=== PATIENT | male | born 1945 | race Caucasian/White ===

== ENCOUNTER 2024-01-09 21:11 | Emergency (ER) | payer MEDICARE, OTHER ==
[~2024-01-09] VITALS: Ht 167.6 cm; Wt 93.0 kg
[2024-01-09 21:39] LABS: HEMOGLOBIN 11.5 g/dL (12.5-16.3)
[2024-01-09] MEDS ORDERED: IOHEXOL 350 100 ML INFUS..BTL ONE (21:39)
[2024-01-09] MEDS ORDERED: SWABABLE VALVE TRANSFER SET EA MC ONE (21:39)
[2024-01-09] MEDS ORDERED: IV NORMAL SALINE 250 ML IV ONE (21:39)
[2024-01-09 21:41] LABS: CALCIUM 8.4 mg/dL (8.5-10.1); CARBON DIOXIDE 23 mmol/L (21-32); CHLORIDE 89 mmol/L (98-107); CREATININE 2.5 mg/dL (0.6-1.3); GLUCOSE 99 mg/dL (74-106); POTASSIUM 4.5 mmol/L (3.5-5.1); SODIUM SERUM 125 mmol/L (136-145)
[2024-01-09 21:42] LABS: BASOPHILS % (AUTO) 0.5 % (0.0-2.0); EOSINOPHILS % (AUTO) 0.5 % (0.0-7.0); HEMATOCRIT 36.4 % (36.7-47.1); LYMPHOCYTES % (AUTO) 12.1 % (20.5-51.5); MEAN CORPUSCULAR HEMOGLOBIN 19.7 uug (23.8-33.4); MEAN CORPUSCULAR HGB CONC 32 g/dL (32.5-36.3); MEAN CORPUSCULAR VOLUME 62.1 fL (73.0-96.2); MONOCYTES % (AUTO) 11.5 % (0.0-11.0); NEUTROPHILS # (AUTO) 6.4 K/uL (1.8-8.9); NEUTROPHILS % (AUTO) 75.4 % (38.5-71.5); PLATELET COUNT (AUTO) 152 K/uL (152-348); RED BLOOD CELL COUNT(AUTO) 5.87 MIL/uL (4.06-5.63); RED CELL DISTRIBUTION WIDTH 16.6 % (12.1-16.2); UREA NITROGEN, BLOOD 80 mg/dL (7-18); WHITE BLOOD COUNT (AUTO) 8.5 K/uL (3.6-10.2)
[2024-01-09 21:44] LABS: DIFFERENTIAL COMMENT 1
[2024-01-09 21:49] LABS: ALANINE AMINOTRANSFERASE 146 U/L (16-63); ALBUMIN 3.2 g/dL (3.4-5.0); ALKALINE PHOSPHATASE 103 U/L (50-136); ASPARTATE AMINOTRANSFERASE 100 U/L (15-37); BILIRUBIN,DIRECT 0.3 mg/dL (0.0-0.2); BILIRUBIN,TOTAL 1.6 mg/dL (0.2-1.0); TOTAL PROTEIN, SERUM 6.9 g/dL (6.4-8.2)
[2024-01-09 22:09] LABS: BAND % (MANUAL) 2 % (0-10); EOSINOPHILS % (MANUAL) 2 % (0-8); LYMPHOCYTES % (MANUAL) 12 % (20-40); MONOCYTES % (MANUAL) 8 % (2-10); NEUTROPHILS % (MANUAL) 76 % (42-75); PLATELET ESTIMATE ADEQUATE
[2024-01-09 22:10] LABS: ANISOCYTOSIS 1+; HYPOCHROMASIA 1+; OVALOCYTES 1+
[2024-01-09 22:11] LABS: TEAR DROP CELLS 1+
[2024-01-09] MEDS: IV NORMAL SALINE 1000 ML BAG IV ONE (22:20)
[2024-01-09 22:53] LABS: ABG BASE EXCESS -3.5 mmol/L (-2.0-2.0); ABG HCO3 21.8 mmol/L (22.0-26.0); ABG PCO2 40.2 mmHg (35.0-48.0); ABG PH 7.352 (7.340-7.440); ABG SITE RIGHT RADIAL; ABG TOTAL HEMOGLOBIN 11.6 G/dL (14.0-18.0); AaDO2 94.1 mmHg; COHb 0.2 % (0.0-3.9); MetHb 0.1 % (0.0-1.5); O2Hb 91.6 % (94.0-97.0)
[2024-01-09] MEDS ORDERED: ALBUTEROL SULFATE 2.5 MG/3 ML NEBU ONE (22:57)
[2024-01-09 23:03] VITALS: O2SAT 94
[2024-01-09] MEDS: ALBUTEROL SULFATE 2.5 MG/3 ML NEBU NEB ONE (23:03)
[2024-01-09] MEDS: TENECTEPLASE 50 MG KIT IVP ONE (23:09)
[2024-01-09] MEDS: IV NS 1000 ML 1,000 ML IV ONE (23:09)
[2024-01-09 23:13] VITALS: O2SAT 97; O2SAT 98
[2024-01-09 23:59] VITALS: O2SAT 95
== END 2024-01-10 01:34 | disposition short-term general hospital (02) ==
LOC: ER 21:13
DX: I63.9 Cerebral infarction, unspecified (principal); R51.9 Headache, unspecified; R06.02 Shortness of breath
CPT/HCPCS: 99291; 70496; 96360; 71045; 96361; 80076; 80048; 82962; 85025; 85730; 87040 ×2; 84484 ×2; 36415; 93005; 70498; 94640; 83605; 36600 ×3; 70450; 85007; Q9967; J7040 ×2; 70030-TC; A4606; A4663